=== PATIENT | male | born 1955 | race Hispanic/Latino ===

== ENCOUNTER 2019-12-01 09:07 | Observation (INO) | payer MEDICARE ==
[~2019-12-01] VITALS: Ht 167.6 cm; Wt 76.7 kg
[2019-12-01 09:42] LABS: BASOPHILS # (AUTO) 0.1 (0.0-0.1); BASOPHILS % 0.7 % (0.0-1.0); EOSINOPHILS # (AUTO) 0.2 (0.0-0.4); EOSINOPHILS % 2.7 % (0.0-6.0); HEMATOCRIT 46.5 % (38.2-49.6); HEMOGLOBIN 15.9 g/dL (14.0-18.0); LYMPHOCYTES # (AUTO) 2.5 (1.0-3.2); LYMPHOCYTES % 31.1 % (18.0-39.1); MEAN CORPUSCULAR HEMOGLOBIN 32.8 pg (28-32); MEAN CORPUSCULAR HGB CONC 34.2 g/dL (31-35); MEAN CORPUSCULAR VOLUME 95.9 fL (81-99); MONOCYTES # (AUTO) 0.9 (0.2-0.8); MONOCYTES % 10.6 % (4.4-11.3); NEUTROPHILS # (AUTO) 4.4 (2.1-6.9); NEUTROPHILS % 54.7 % (38.7-80.0); PLATELET COUNT 209 x10e3/uL (140-360); RED BLOOD COUNT 4.85 x10e6/uL (4.3-5.7); RED CELL DISTRIBUTION WIDTH 13.4 % (11.7-14.4)
[2019-12-01 09:58] LABS: CLARITY,URINE CLEAR (CLEAR); COLOR,URINE YELLOW (YELLOW); LEUKOCYTE ESTERASE ,URINE NEGATIVE (NEGATIVE)
[2019-12-01 09:59] LABS: BACTERIA,URINE RARE /HPF; BILIRUBIN,URINE NEGATIVE (NEGATIVE); EPITHELIAL CELLS,URINE FEW /LPF; KETONES,URINE NEGATIVE (NEGATIVE); NITRITE,URINE NEGATIVE (NEGATIVE); PROTEIN,URINE DIPSTICK NEGATIVE (NEGATIVE); RBC,URINE 0-5 /HPF (0-5); WBC,URINE (MAN) 0-5 /HPF (0-5)
[2019-12-01] MEDS ORDERED: ONDANSETRON HCL INJ 2MG/ML 2ML 2 MG/ML VIAL IV PRN (10:00)
[2019-12-01] MEDS ORDERED: NITROGLYCERIN 0.4 MG SUBL SL PRN (10:00)
[2019-12-01] MEDS ORDERED: MORPHINE SULFATE 2 MG/ML SYR 1ML IV PRN (10:00)
[2019-12-01 10:01] LABS: ALANINE AMINOTRANSFERASE 24 IU/L (0-55); ALBUMIN 4.5 g/dL (3.5-5.0); ALBUMIN/GLOBULIN RATIO 1.3 (0.8-2.0); ALKALINE PHOSPHATASE 104 IU/L (40-150); ANION GAP 13.1 mmol/L (8-16); BLOOD UREA NITROGEN 14 mg/dL (7-26); BUN/CREATININE RATIO 18 (6-25); CALCIUM 9.3 mg/dL (8.4-10.2); CARBON DIOXIDE 26 mmol/L (22-29); CHLORIDE 104 mmol/L (98-107); CREATINE KINASE 219 IU/L (30-200); CREATININE, SERUM 0.78 mg/dL (0.72-1.25); EST GLOMERULAR FILTRATION RATE > 60 ML/MIN (60-); GLUCOSE 89 mg/dL (74-118); MAGNESIUM 2.1 MG/DL (1.3-2.1); POTASSIUM 4.1 mmol/L (3.5-5.1); SODIUM 139 mmol/L (136-145)
[2019-12-01] MEDS ORDERED: LISINOPRIL10 MG PO (10:11)
[2019-12-01 10:15] LABS: INR 0.9; PARTIAL THROMBOPLASTIN TIME 29.2 seconds (23.8-35.5); PROTHROMBIN TIME 12.6 seconds (11.9-14.5)
--- NOTE | 2019-12-01 10:19 | Diagnostic Imaging Report ---
EXAMINATION: CHEST SINGLE (PORTABLE) INDICATION: CP COMPARISON: None FINDINGS: TUBES and LINES: None. LUNGS: Lungs are well inflated. Lungs are clear. There is no evidence of pneumonia or pulmonary edema. PLEURA: No pleural effusion or pneumothorax. HEART AND MEDIASTINUM: The cardiomediastinal silhouette is unremarkable. Indeterminate 4 mm metallic density overlies the right mediastinum. BONES AND SOFT TISSUES: No acute osseous abnormality. UPPER ABDOMEN: No free air under the diaphragm. IMPRESSION: No acute thoracic abnormality. Indeterminate 4 mm metallic density overlies the right mediastinum and may be post surgical or overlying the patient. Recommend clinical correlation. Signed by: Dr. Piper Guerrero MD on 12/01/2019 10:16 AM
[2019-12-01] MEDS: FAMOTIDINE 20 MG/2 ML VIAL IV SCH ×2 (10:29→22:05)
--- NOTE | 2019-12-01 10:45 | Diagnostic Imaging Report ---
CT BRAIN WO HISTORY: Right facial numbness COMPARISON: None. Technique: Noncontrast axial scans were obtained from skull base to the vertex. Coronal and sagittal reconstructions obtained from the axial data. One or more of the following dose reduction techniques were used: Automated exposure control, adjustment of the mA and/or kV according to patient size, and/or utilization of iterative reconstruction technique. DISCUSSION: Scalp/Skull: Unremarkable. Brain sulci: Mildly prominent. Ventricles: Compensatory dilatation. Extra-axial spaces: No masses or fluid collections. Carotid siphon and vertebral artery calcifications are present. Parenchyma: Mild bilateral deep white matter hypodensity is likely chronic microvascular ischemic change. Otherwise, no masses, hemorrhage, or large vascular territory acute infarct. Dural sinuses: No abnormal densities. Sellar/Suprasellar region: Intact. Skull base: Intact. Incidental findings: None. IMPRESSION: 1. No acute intracranial abnormalities. 2. Mild supratentorial chronic microvascular ischemic change. Mild generalized cerebral volume loss. Signed by: Dr. Matthew Madsen M.D. on 12/01/2019 10:42 AM
[2019-12-01] MEDS ORDERED: HYDRALAZINE HCL 20 MG/ML VIAL IV STA (11:58)
--- NOTE | 2019-12-01 11:58 | Emergency Department Note ---
History of Present Illnes History of Present Illness Chief Complaint: Chest Pain History of Present Illness This is a 64 year old male PATIENT IN FROM HOME WITH COMPLAINTS OF CHEST PAIN WITH ASSOC SOB INTERMITTENT SINCE LAST NIGHT RADIATES TO BOTH SHOULDERS AND RIGHT SIDED FACIAL NUMBNESS WITH ONSET APPROXIMATELY 30 MINUTES PRIOR TO ARRIVAL; RATES PAIN 6/10. PATIENT ALERT AND ORIENTED, RESP EVEN AND NONLABORED, APPEARS IN NO DISTRESS, AMBULATORY WITHOUT ASSISTANCE. Historian: Patient Arrival Mode: Car Radiology Therapist Required: No Onset (how long ago): day(s) (STARTED YESTERDAY) Location: SUBSTERNAL Quality: PRESSURE Radiation: Reports extremity (BOTH SHOULDERS) Severity: moderate Onset quality: sudden Timing of current episode: intermittent Progression: waxing and waning Chronicity: new Context: Denies recent illness Relieving factors: none Exacerbating factors: none Associated symptoms: Reports chest pain, Reports shortness of breath Past Medical/Family History Physician Review I have reviewed the patient's past medical and family history. Any updates have been documented here. Past Medical History Recent Fever: No Clinical Suspicion of Infectio: No New/Unexplained Change in Ment: No Past Medical History: Hypertension Past Surgical History: None Social History Smoking Cessation: Current some day smoker (NOT CIGARETTES BUT MARIJUANA) Counseling Performed: Yes Alcohol Use: Social Any Illegal Drug Use: Yes (DAILY MARIJUANA SMOKER) TB Exposure/Symptoms: No Physically hurt or threatened: No Family History Family history of heart diseas: No Other Any Pre-Existing Lines (PICC,: No Review of Systems Review of Systems Constitutional: Reports no symptoms EENTM: Reports no symptoms Cardiovascular: Reports as per HPI Respiratory: Reports as per HPI Gastrointestinal: Reports no symptoms Genitourinary: Reports no symptoms Musculoskeletal: Reports no symptoms Integumentary: Reports no symptoms Neurological: Reports no symptoms Psychological: Reports no symptoms Endocrine: Reports no symptoms Hematological/Lymphatic: Reports no symptoms Physical Exam Related Data Allergies: Coded Allergies: No Known Allergies (Unverified , 12/01/19) Triage Vital Signs Vital Signs Date Time Temp Pulse Resp B/P (MAP) Pulse Ox O2 Delivery O2 Flow Rate FiO2 12/01/19 09:09 97.2 61 18 171/81 100 Room Air Vital signs reviewed: Yes Physical Exam CONSTITUTIONAL Constitutional: Present well-developed, Present well-nourished HENT HENT: Present normocephalic, Present atraumatic, Present oropharynx clear/moist, Present nose normal HENT L/R: Present left ext ear normal, Present right ext ear normal EYES Eyes: Reports PERRL, Reports conjunctivae normal NECK Neck: Present ROM normal PULMONARY Pulmonary: Present effort normal, Present breath sounds normal CARDIOVASCULAR Cardiovascular: Present regular rhythm, Present heart sounds normal, Present capillary refill normal, Present normal rate GASTROINTESTINAL Abdominal: Present soft, Present nontender, Present bowel sounds normal GENITOURINARY Genitourinary: Present exam deferred SKIN Skin: Present warm, Present dry MUSCULOSKELETAL Musculoskeletal: Present ROM normal NEUROLOGICAL Neurological: Present alert, Present oriented x 3, Present no gross motor or sensory deficits PSYCHOLOGICAL Psychological: Present mood/affect normal, Present judgement normal Results Laboratory Result Diagram: 12/01/1925 12/01/19 0925 Laboratory Laboratory Tests Test 12/01/19 10:02 12/01/19 09:25 White Blood Count 8.04 x10e3/uL (4.8-10.8) Red Blood Count 4.85 x10e6/uL (4.3-5.7) Hemoglobin 15.9 g/dL (14.0-18.0) Hematocrit 46.5 % (38.2-49.6) Mean Corpuscular Volume 95.9 fL (81-99) Mean Corpuscular Hemoglobin 32.8 pg (28-32) Mean Corpuscular Hemoglobin Concent 34.2 g/dL (31-35) Red Cell Distribution Width 13.4 % (11.7-14.4) Platelet Count 209 x10e3/uL (140-360) Neutrophils (%) (Auto) 54.7 % (38.7-80.0) Lymphocytes (%) (Auto) 31.1 % (18.0-39.1) Monocytes (%) (Auto) 10.6 % (4.4-11.3) Eosinophils (%) (Auto) 2.7 % (0.0-6.0) Basophils (%) (Auto) 0.7 % (0.0-1.0) Neutrophils # (Auto) 4.4 (2.1-6.9) Lymphocytes # (Auto) 2.5 (1.0-3.2) Monocytes # (Auto) 0.9 (0.2-0.8) Eosinophils # (Auto) 0.2 (0.0-0.4) Basophils # (Auto) 0.1 (0.0-0.1) Absolute Immature Granulocyte (auto 0.02 x10e3/uL (0-0.1) Prothrombin Time 12.6 seconds (11.9-14.5) Prothromb Time International Ratio 0.90 Activated Partial Thromboplast Time 29.2 seconds (23.8-35.5) Urine Color Yellow (YELLOW) Urine Clarity Clear (CLEAR) Urine pH 7.5 (5 - 7) Urine Specific [place] 1.020 (1.010-1.025) Urine Protein Negative (NEGATIVE) Urine Glucose (UA) Negative (NEGATIVE) Urine Ketones Negative (NEGATIVE) Urine Blood Negative (NEGATIVE) Urine Nitrite Negative (NEGATIVE) Urine Bilirubin Negative (NEGATIVE) Urine Urobilinogen 4.0 mg/dL (0.2 - 1) Urine Leukocyte Esterase Negative (NEGATIVE) Urine RBC 0-5 /HPF (0-5) Urine WBC 0-5 /HPF (0-5) Urine Epithelial Cells Few /LPF (NONE) Urine Bacteria Rare /HPF (NONE) Sodium Level 139 mmol/L (136-145) Potassium Level 4.1 mmol/L (3.5-5.1) Chloride Level 104 mmol/L (98-107) Carbon Dioxide Level 26 mmol/L (22-29) Anion Gap 13.1 mmol/L (8-16) Blood Urea Nitrogen 14 mg/dL (7-26) Creatinine 0.78 mg/dL (0.72-1.25) Estimat Glomerular Filtration Rate > 60 ML/MIN (60-) BUN/Creatinine Ratio 18 (6-25) Glucose Level 89 mg/dL (74-118) Calcium Level 9.3 mg/dL (8.4-10.2) Magnesium Level 2.1 MG/DL (1.3-2.1) Total Bilirubin 0.5 mg/dL (0.2-1.2) Aspartate Amino Transf (AST/SGOT) 26 IU/L (5-34) Alanine Aminotransferase (ALT/SGPT) 24 IU/L (0-55) Alkaline Phosphatase 104 IU/L (40-150) Creatine Kinase 219 IU/L (30-200) Creatine Kinase MB 2.70 ng/mL (0-5.0) Troponin I 0.016 ng/mL (0-0.300) B-Type Natriuretic Peptide 37.9 pg/mL (0-100) Total Protein 8.0 g/dL (6.5-8.1) Albumin 4.5 g/dL (3.5-5.0) Globulin 3.5 g/dL (2.3-3.5) Albumin/Globulin Ratio 1.3 (0.8-2.0) Lab results reviewed: Yes Imaging Imaging results reviewed: Yes Procedures 12 Lead ECG Interpretation ECG Interpretation : ECG: ECG 1 Radiology Therapist: Interpreted by ED physician Date: Dec 01, 2019 Time: 09:10 Rhythm: sinus bradycardia Rate: bradycardia (57) QRS axis: left ST segments normal: Yes T waves normal: Yes Clinical Impression: normal ECG Assessment & Plan Medical Decision Making [facility] CP WITH ASSOC SOB & RAD TO SHOULDERS - CBC, CHEM, ECG, CARDIACS, CXR. HE ALSO C/O NUMBNESS TO FACE SO IN CASE HE NEEDS ANTICOAGULATION, WILL GET CT BRAIN. - R/O STEMI/NSTEMI, ELECTROLYTE ABNL, PNEUMONIA, COVID, CEREBRAL BLEED/CVA Reassessment Reassessment ADMIT DR WILKS Assessment & Plan Final Impression: (1) Chest pain Depart Disposition: ADMITTED Last Vital Signs Date Time Temp Pulse Resp B/P (MAP) Pulse Ox O2 Delivery O2 Flow Rate FiO2 12/01/19 10:37 97.2 57 16 170/79 97 Room Air Home Meds Reported Medications Lisinopril (LISINOPRIL) 10 Mg Tablet, 30 MG PO DAILY, #30 TAB 12/01/19 LEA ARVIZU MD Dec 01, 2019 11:58
[2019-12-01] MEDS ORDERED: HYDRALAZINE HCL 20 MG/ML VIAL IV PRN (17:30)
[2019-12-01] MEDS ORDERED: POLYETHYLENE GLYCOL 3350 17 GM PACK PO PRN (18:45)
[2019-12-01] MEDS ORDERED: TEMAZEPAM 7.5 MG CAP PO PRN (18:45)
[2019-12-01] MEDS ORDERED: ACETAMINOPHEN 325 MG TAB PO PRN (18:45)
[2019-12-01] MEDS ORDERED: IOPAMIDOL 370 MG/ML 200 ML INFUS..BTL INJ ONE (18:52)
[2019-12-01] MEDS ORDERED: SODIUM CHLORIDE 0.9% 50ML 50 ML ONE (18:52)
--- NOTE | 2019-12-01 19:45 | Diagnostic Imaging Report ---
EXAM: CT Chest WITH contrast (PE Protocol) INDICATION: ^PE Protocol, reproducible Lt sided chest pain ^[id number] ^[id number] ^Y COMPARISON: Same day chest x-ray TECHNIQUE: Chest was scanned utilizing a multidetector helical scanner from the lung apex through the level of the diaphragm after administration of IV contrast. Thin section reconstructions were obtained with special concentration on the pulmonary arteries. Coronal and sagittal reformations were obtained. Dose modulation, iterative reconstruction, and/or weight based adjustment of the mA/kV was utilized to reduce the radiation dose to as low as reasonably achievable. Pulmonary embolism protocol was performed. IV CONTRAST: 100 mL of Omnipaque 370 COMPLICATIONS: None RADIATION DOSE: Total DLP: 529.49 mGy*cm Estimated effective dose: (DLP x 0.014 x size factor) mSv CTDIvol has been reviewed. It is below the limits set by the Radiation Protocol Committee (RPC). FINDINGS: LINES/ TUBES: None. LUNGS AND AIRWAYS: No filling defect is identified within the pulmonary arteries to the segmental level. Left upper lobe 5 mm nodule. Right upper lobe area of nodularity versus scarring, measuring up to 5 mm. No focal infiltrate. Airways are normal. PLEURA: The pleural spaces are clear. HEART AND MEDIASTINUM: The thyroid gland is normal. No mediastinal, hilar or axillary lymphadenopathy. The heart is normal in size.. There is no pericardial effusion. . Main pulmonary artery measures 2.8 cm in diameter. UPPER ABDOMEN: Unremarkable BONES: Degenerative changes of spine. SOFT TISSUES: Unremarkable. IMPRESSION: No pulmonary emboli. Lung nodules measuring up to 5 mm. Without risk factors, no follow-up is necessary. With risk factors, follow-up with low-dose chest CT in one year is recommended. Signed by: Dr. Rhett Stephens MD on 12/01/2019 7:42 PM
[2019-12-01 21:30] VITALS: BP 148/87
--- NOTE | 2019-12-01 22:00 | NUR ---
PATIENT MANAGER WOMEN FROM ER. PATIENT IS AAOX4, RESP EVEN AND UNLABORED. NO ACUTE DISTRESS NOTED AT THIS TIME. PATIENT DENIES OF ANY PAIN OR DISCOMFORT. TELE IN PLACE. ORIENTED PATIENT TO ROOM. EDUCATED PT ABOUT FALL PRECAUTIONS. PT VERBALIZED UNDERSTANDING. BED IS LOW AND LOCKED. SIDE RAILS X2. CALL LIGHT WITH IN EASY REACH. BED ALARM IS ON. ALL SAFETY MEASURES IN PLACE. PT DENIES NEEDS AT THIS TIME.
[2019-12-01 22:20] VITALS: BP 148/87
[2019-12-01 22:24] VITALS: BP 148/87
[2019-12-01 22:36] LABS: CREATINE KINASE MB 1.5 ng/mL (0-5.0)
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
[2019-12-02 00:31] VITALS: BP 141/72
[2019-12-02 04:00] VITALS: BP 163/87
[2019-12-02 05:29] LABS: BASOPHILS # (AUTO) 0.1 (0.0-0.1); BASOPHILS % 0.7 % (0.0-1.0); EOSINOPHILS # (AUTO) 0.3 (0.0-0.4); EOSINOPHILS % 4.2 % (0.0-6.0); HEMATOCRIT 45.5 % (38.2-49.6); HEMOGLOBIN 15.2 g/dL (14.0-18.0); LYMPHOCYTES # (AUTO) 2.7 (1.0-3.2); LYMPHOCYTES % 36.8 % (18.0-39.1); MEAN CORPUSCULAR HEMOGLOBIN 32.7 pg (28-32); MEAN CORPUSCULAR HGB CONC 33.4 g/dL (31-35); MEAN CORPUSCULAR VOLUME 97.8 fL (81-99); MONOCYTES # (AUTO) 0.7 (0.2-0.8); MONOCYTES % 9.9 % (4.4-11.3); NEUTROPHILS # (AUTO) 3.6 (2.1-6.9); NEUTROPHILS % 48.3 % (38.7-80.0); PLATELET COUNT 207 x10e3/uL (140-360); RED BLOOD COUNT 4.65 x10e6/uL (4.3-5.7); RED CELL DISTRIBUTION WIDTH 13.5 % (11.7-14.4)
[2019-12-02 05:57] LABS: CREATINE KINASE MB 1.4 ng/mL (0-5.0)
[2019-12-02 06:16] LABS: MAGNESIUM 2.1 MG/DL (1.3-2.1); PHOSPHORUS 2.8 MG/DL (2.3-4.7)
[2019-12-02 06:37] LABS: THYROID STIMULATING HORMONE 3.49 uIU/mL (0.350-4.940)
[2019-12-02 07:34] VITALS: BP 158/80
[2019-12-02 07:35] LABS: ALANINE AMINOTRANSFERASE 22 IU/L (0-55); ALBUMIN 4.1 g/dL (3.5-5.0); ALBUMIN/GLOBULIN RATIO 1.3 (0.8-2.0); ALKALINE PHOSPHATASE 69 IU/L (40-150); ANION GAP 14.5 mmol/L (8-16); BLOOD UREA NITROGEN 13 mg/dL (7-26); BUN/CREATININE RATIO 16 (6-25); CALCIUM 9.1 mg/dL (8.4-10.2); CARBON DIOXIDE 23 mmol/L (22-29); CHLORIDE 106 mmol/L (98-107); CHOL/HDL RATIO 4.7 (3.9-4.7); CHOLESTEROL 198 MD/DL (0-199); CREATININE, SERUM 0.81 mg/dL (0.72-1.25); EST GLOMERULAR FILTRATION RATE > 60 ML/MIN (60-); GLUCOSE 105 mg/dL (74-118); HDL CHOLESTEROL 42 MG/DL (40-60); LDL CHOLESTEROL 130 MG/DL (60-130); POTASSIUM 4.5 mmol/L (3.5-5.1); SODIUM 139 mmol/L (136-145); TRIGLYCERIDES 131 MG/DL (0-149)
[2019-12-02] MEDS ORDERED: LISINOPRIL 10 MG TAB PO SCH (09:00)
[2019-12-02] MEDS ORDERED: DOCUSATE SODIUM 100 MG CAP PO SCH (09:00)
[2019-12-02] MEDS ORDERED: ASPIRIN 81 MG ENTERIC COATED PO SCH (09:00)
[2019-12-02] MEDS: FAMOTIDINE 20 MG/2 ML VIAL IV SCH (09:08)
[2019-12-02 11:31] VITALS: BP 170/80
[2019-12-02] MEDS ORDERED: ULTRAM50 MG PO (13:53)
[2019-12-02] MEDS ORDERED: ASPIRIN EC81 MG PO (13:53)
--- NOTE | 2019-12-02 15:02 | NUR ---
Discharge instructions and prescriptions given to the patient, he verbalized understanding. IV to the left ac was removed.
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
== END 2019-12-02 15:28 | disposition home or self-care (01) ==
LOC: ER 09:30 → ERHOLD 09:46 → MED/SURG2 21:32
PROVIDERS: ADMIT Internal Medicine; ATTEND Internal Medicine
DX: R07.89 Other chest pain (principal); R00.1 Bradycardia, unspecified; R20.0 Anesthesia of skin; I10 Essential (primary) hypertension; Z11.59 Encounter for screening for other viral diseases
CPT/HCPCS: 36415 ×2; 70450; 71045; 71260; 80053 ×2; 80061; 81001; 82550 ×2; 82553 ×2; 83036; 83735 ×2; 83880; 84100; 84443; 84484 ×2; 85025 ×2; 85610; 85730; 93005; 99284; G0378 ×2; J0360 ×2; Q9967; U0002

== ENCOUNTER 2019-12-13 08:58 | Observation (INO) | payer MEDICARE, OTHER ==
[2019-12-11 16:02] LABS: BASOPHILS # (AUTO) 0.1 (0.0-0.1); BASOPHILS % 0.8 % (0.0-1.0); EOSINOPHILS # (AUTO) 0.3 (0.0-0.4); EOSINOPHILS % 3.5 % (0.0-6.0); HEMATOCRIT 42.7 % (38.2-49.6); HEMOGLOBIN 14.6 g/dL (14.0-18.0); LYMPHOCYTES # (AUTO) 2.9 (1.0-3.2); LYMPHOCYTES % 31.9 % (18.0-39.1); MEAN CORPUSCULAR HEMOGLOBIN 33.6 pg (28-32); MEAN CORPUSCULAR HGB CONC 34.2 g/dL (31-35); MEAN CORPUSCULAR VOLUME 98.2 fL (81-99); MONOCYTES # (AUTO) 0.9 (0.2-0.8); MONOCYTES % 10.1 % (4.4-11.3); NEUTROPHILS # (AUTO) 4.9 (2.1-6.9); NEUTROPHILS % 53.6 % (38.7-80.0); PLATELET COUNT 177 x10e3/uL (140-360); RED BLOOD COUNT 4.35 x10e6/uL (4.3-5.7); RED CELL DISTRIBUTION WIDTH 13.4 % (11.7-14.4)
[2019-12-11 16:16] LABS: INR 0.99; PARTIAL THROMBOPLASTIN TIME 29.7 seconds (23.8-35.5); PROTHROMBIN TIME 13.6 seconds (11.9-14.5)
[2019-12-11 16:23] LABS: ALANINE AMINOTRANSFERASE 25 IU/L (0-55); ALBUMIN 4.1 g/dL (3.5-5.0); ALBUMIN/GLOBULIN RATIO 1.1 (0.8-2.0); ALKALINE PHOSPHATASE 91 IU/L (40-150); ANION GAP 16.2 mmol/L (8-16); BLOOD UREA NITROGEN 12 mg/dL (7-26); BUN/CREATININE RATIO 14 (6-25); CALCIUM 9.4 mg/dL (8.4-10.2); CARBON DIOXIDE 27 mmol/L (22-29); CHLORIDE 104 mmol/L (98-107); CREATININE, SERUM 0.87 mg/dL (0.72-1.25); EST GLOMERULAR FILTRATION RATE > 60 ML/MIN (60-); GLUCOSE 91 mg/dL (74-118); POTASSIUM 4.2 mmol/L (3.5-5.1); SODIUM 143 mmol/L (136-145)
[~2019-12-13] VITALS: Ht 167.6 cm; Wt 79.4 kg
[2019-12-13] VITALS (18 sets, daily range): BP systolic 114–185; BP diastolic 57–86
[~2019-12-13 08:58] MED LIST: ASPIRIN EC81 MG PO; LISINOPRIL10 MG PO; ULTRAM50 MG PO
[2019-12-13] MEDS ORDERED: NITROGLYCERIN0.4 MG SL (09:49)
[2019-12-13] MEDS ORDERED: AMLODIPINE BESYL5 MG PO (09:49)
[2019-12-13] MEDS ORDERED: ATORVASTATIN CA20 MG PO (09:49)
[2019-12-13] MEDS ORDERED: METOPROLOL SUCC25 MG PO (09:49)
[2019-12-13] MEDS ORDERED: ASPIRIN 325 MG TAB ONE ×2 (10:03→11:32)
[2019-12-13] MEDS ORDERED: MIDAZOLAM HCL 2 MG/2 ML VIAL ONE (10:59)
[2019-12-13] MEDS ORDERED: SODIUM CHLORIDE 0.9% 1000ML 1,000 ML ONE (11:00)
[2019-12-13] MEDS ORDERED: LIDOCAINE HCL 2% LOCAL 20 ML VIAL ONE (11:00)
[2019-12-13] MEDS ORDERED: FENTANYL CITRATE/PF 100MCG/2 ML INJ ONE (11:00)
[2019-12-13] MEDS ORDERED: HEPARIN SOD/SOD CHLORIDE 2,000 ML ONE (11:00)
[2019-12-13] MEDS ORDERED: IOPAMIDOL 370 MG/ML 200 ML INFUS..BTL INJ ONE (11:00)
[2019-12-13] MEDS ORDERED: CLOPIDOGREL BISULFATE 75 MG TAB ONE (11:31)
[2019-12-13] MEDS ORDERED: HYDRALAZINE HCL 20 MG/ML VIAL ONE (12:18)
[2019-12-13] MEDS ORDERED: TRAMADOL HCL 50 MG TAB PO PRN (19:00)
[2019-12-13] MEDS ORDERED: NITROGLYCERIN 0.4 MG SUBL SL PRN (19:00)
[2019-12-13] MEDS ORDERED: ACETAMINOPHEN 325 MG TAB PO PRN (19:00)
[2019-12-13] MEDS ORDERED: ATORVASTATIN 40 MG TAB PO SCH (21:00)
[2019-12-14] VITALS: BP 138/69
[2019-12-14 04:00] VITALS: BP 143/85
[2019-12-14 07:34] VITALS: BP 131/67
[2019-12-14 09:00] VITALS: BP 131/67
[2019-12-14] MEDS ORDERED: LISINOPRIL 20 MG TAB PO SCH (09:00)
[2019-12-14] MEDS ORDERED: METOPROLOL SUCCINATE 25 MG TAB XL PO SCH (09:00)
[2019-12-14] MEDS ORDERED: ASPIRIN 81 MG ENTERIC COATED PO SCH (09:00)
[2019-12-14] MEDS ORDERED: AMLODIPINE BESYLATE 5 MG TAB PO SCH (09:00)
[2019-12-14 11:16] VITALS: BP 163/84
[2019-12-14] MEDS ORDERED: PLAVIX75 MG PO (12:22)
== END 2019-12-14 12:38 | disposition home or self-care (01) ==
LOC: CATH LAB 08:58 → PACU V 11:54 → MED/SURG 14:46
PROVIDERS: ADMIT Internal Medicine Cardiovascular Disease; ATTEND Internal Medicine Cardiovascular Disease
DX: I25.118 Atherosclerotic heart disease of native coronary artery with other forms of angina pectoris (principal); R06.02 Shortness of breath; I10 Essential (primary) hypertension; E78.5 Hyperlipidemia, unspecified; Z83.3 Family history of diabetes mellitus; Z82.49 Family history of ischemic heart disease and other diseases of the circulatory system; Z11.59 Encounter for screening for other viral diseases; Z01.812 Encounter for preprocedural laboratory examination
CPT/HCPCS: 93458; C9600; 36415; 80053; 85025; 85610; 85730; 92928; C1725; C1769; C1876; C1887; G0378; J0360; J2001; J2250; J3010; J7030; Q9967; U0002

== ENCOUNTER 2022-04-19 10:53 | Observation (INO) | payer MEDICARE ==
[~2022-04-19] VITALS: Ht 167.6 cm; Wt 79.4 kg
[~2022-04-19 10:53] MED LIST changes: +AMLODIPINE BESYL5 MG PO; +ATORVASTATIN CA20 MG PO; +METOPROLOL SUCC25 MG PO; +NITROGLYCERIN0.4 MG SL; +PLAVIX75 MG PO
[2022-04-19] MEDS ORDERED: MECLIZINE HCL 12.5 MG TAB PO ONE (12:00)
[2022-04-19 12:09] LABS: BASOPHILS # (AUTO) 0.1 (0.0-0.1); BASOPHILS % 0.8 % (0.0-1.0); EOSINOPHILS # (AUTO) 0.4 (0.0-0.4); EOSINOPHILS % 5.5 % (0.0-6.0); HEMATOCRIT 45.6 % (38.2-49.6); HEMOGLOBIN 14.7 g/dL (14.0-18.0); LYMPHOCYTES # (AUTO) 2.3 (1.0-3.2); LYMPHOCYTES % 34.9 % (18.0-39.1); MEAN CORPUSCULAR HEMOGLOBIN 32.2 pg (28-32); MEAN CORPUSCULAR HGB CONC 32.2 g/dL (31-35); MONOCYTES # (AUTO) 0.6 (0.2-0.8); MONOCYTES % 9.6 % (4.4-11.3); NEUTROPHILS # (AUTO) 3.2 (2.1-6.9); NEUTROPHILS % 48.9 % (38.7-80.0); PLATELET COUNT 189 x10e3/uL (140-360); RED BLOOD COUNT 4.56 x10e6/uL (4.3-5.7); RED CELL DISTRIBUTION WIDTH 12.8 % (11.7-14.4)
[2022-04-19 12:20] LABS: ALBUMIN 3.6 g/dL (3.5-5.0); ALBUMIN/GLOBULIN RATIO 0.9 (0.8-2.0); ANION GAP 9.8 mmol/L (8-16); CALCIUM 8.8 mg/dL (8.4-10.2); CREATININE, SERUM 0.69 mg/dL (0.72-1.25); POTASSIUM 3.8 mmol/L (3.5-5.1)
[2022-04-19 12:26] LABS: CREATINE KINASE MB 9.1 ng/mL (0-5.0)
[2022-04-19] MEDS ORDERED: SODIUM CHLORIDE FLUSH 10 ML SYR INJ PRN (13:15)
[2022-04-19] MEDS ORDERED: ONDANSETRON HCL INJ 2MG/ML 2ML 2 MG/ML VIAL IV PRN (13:15)
[2022-04-19] MEDS ORDERED: MECLIZINE HCL 12.5 MG TAB ONE (13:28)
[2022-04-19] MEDS ORDERED: HYDRALAZINE HCL 20 MG/ML VIAL ONE (13:29)
[2022-04-19] MEDS ORDERED: SODIUM CHLORIDE 0.9% 100 ML ONE (13:41)
[2022-04-19] MEDS ORDERED: IOPAMIDOL 370 MG/ML 100 ML INFUS..BTL INJ ONE (13:42)
[2022-04-19] MEDS: HYDRALAZINE HCL 20 MG/ML VIAL IV PRN (15:54)
[2022-04-19 20:00] VITALS: BP 160/78
[2022-04-19 21:36] VITALS: BP 160/78
[2022-04-20] VITALS (8 sets, daily range): BP systolic 131–175; BP diastolic 69–91
[2022-04-20 06:09] LABS: BASOPHILS % 0.6 % (0.0-1.0); EOSINOPHILS # (AUTO) 0.3 (0.0-0.4); EOSINOPHILS % 4.4 % (0.0-6.0); HEMATOCRIT 41.9 % (38.2-49.6); LYMPHOCYTES # (AUTO) 1.7 (1.0-3.2); LYMPHOCYTES % 27.4 % (18.0-39.1); MEAN CORPUSCULAR HEMOGLOBIN 33.9 pg (28-32); MEAN CORPUSCULAR HGB CONC 35.8 g/dL (31-35); MEAN CORPUSCULAR VOLUME 94.8 fL (81-99); MONOCYTES # (AUTO) 0.6 (0.2-0.8); MONOCYTES % 9.7 % (4.4-11.3); NEUTROPHILS # (AUTO) 3.6 (2.1-6.9); NEUTROPHILS % 57.6 % (38.7-80.0); PLATELET COUNT 179 x10e3/uL (140-360); RED BLOOD COUNT 4.42 x10e6/uL (4.3-5.7); RED CELL DISTRIBUTION WIDTH 13.4 % (11.7-14.4)
[2022-04-20 06:24] LABS: ANION GAP 11.8 mmol/L (8-16); CALCIUM 8.7 mg/dL (8.4-10.2); CREATININE, SERUM 0.75 mg/dL (0.72-1.25); POTASSIUM 3.8 mmol/L (3.5-5.1)
[2022-04-20] MEDS: HYDRALAZINE HCL 20 MG/ML VIAL IV PRN ×2 (12:47→16:27)
[2022-04-20 15:55] LABS: CHOL/HDL RATIO 4.2 (3.9-4.7)
[2022-04-20] MEDS: ASPIRIN 81 MG CHEW TAB PO SCH (19:21)
[2022-04-20] MEDS: METOPROLOL SUCCINATE 25 MG TAB XL PO SCH (19:21)
[2022-04-20] MEDS ORDERED: ATORVASTATIN 40 MG TAB PO SCH (21:00)
[2022-04-21 01:49] VITALS: BP 142/73
[2022-04-21 05:42] VITALS: BP 142/73
[2022-04-21 05:43] VITALS: BP 142/73
[2022-04-21 05:58] VITALS: BP 153/76
[2022-04-21] MEDS: ASPIRIN 81 MG CHEW TAB PO SCH (08:26)
[2022-04-21] MEDS: METOPROLOL SUCCINATE 25 MG TAB XL PO SCH (08:27)
[2022-04-21 08:39] VITALS: BP 137/62
[2022-04-21 08:47] VITALS: BP 137/62
== END 2022-04-21 10:25 | disposition home or self-care (01) ==
LOC: ER 10:56 → INTOOBSV 13:15 → ERHOLD 13:15 → MED/SURG2 18:36
PROVIDERS: ADMIT Internal Medicine; ATTEND Internal Medicine
DX: R42 Dizziness and giddiness (principal); R26.0 Ataxic gait; I25.10 Atherosclerotic heart disease of native coronary artery without angina pectoris; I10 Essential (primary) hypertension; E78.5 Hyperlipidemia, unspecified; Z91.14 Patient's other noncompliance with medication regimen; Z20.822 Contact with and (suspected) exposure to COVID-19; Z79.02 Long term (current) use of antithrombotics/antiplatelets; Z79.82 Long term (current) use of aspirin; Z79.899 Other long term (current) drug therapy; Z95.5 Presence of coronary angioplasty implant and graft; Z86.73 Personal history of transient ischemic attack (TIA), and cerebral infarction without residual deficits
CPT/HCPCS: 0223U; 36415 ×2; 70450; 70496; 70498; 71045; 80048; 80053; 80061; 82550; 82553; 84484; 85025 ×2; 93005; 93306; 93880; 99284; G0378 ×3; J0360 ×2; J7050; J8597; Q9967

== ENCOUNTER 2023-10-25 13:10 | Emergency (ER) | payer MEDICARE ==
[~2023-10-25] VITALS: Ht 167.6 cm; Wt 79.4 kg
[2023-10-25 15:18] LABS: BILIRUBIN,URINE NEGATIVE (NEGATIVE); CLARITY,URINE CLEAR (CLEAR); COLOR,URINE YELLOW (YELLOW); GLUCOSE, URINE NEGATIVE (NEGATIVE); KETONES,URINE NEGATIVE (NEGATIVE); LEUKOCYTE ESTERASE ,URINE NEGATIVE (NEGATIVE); NITRITE,URINE NEGATIVE (NEGATIVE); PH,URINE 6 (5 - 7); PROTEIN,URINE DIPSTICK NEGATIVE (NEGATIVE); URINE UROBILINOGEN 1 mg/dL (0.2 - 1)
[2023-10-25 15:40] LABS: WBC,URINE (MAN) 0-5 /HPF (0-5)
[2023-10-25 15:41] LABS: BACTERIA,URINE RARE /HPF
[2023-10-25 15:42] LABS: MUCUS,URINE RARE (RARE)
[2023-10-25 17:11] VITALS: PULSE 69; RESP 16; TEMP 99.5; O2SAT 98
[2023-10-25] MEDS: KETOROLAC TROMETHAMINE 30 MG/ML VIAL IV ONE (17:22)
[2023-10-25 17:30] LABS: BASOPHILS # (AUTO) 0.1 (0.0-0.1); BASOPHILS % 0.4 % (0.0-1.0); EOSINOPHILS # (AUTO) 0.2 (0.0-0.4); EOSINOPHILS % 1.7 % (0.0-6.0); HEMATOCRIT 42.4 % (38.2-49.6); HEMOGLOBIN 14.1 g/dL (14.0-18.0); LYMPHOCYTES # (AUTO) 1.9 (1.0-3.2); LYMPHOCYTES % 14.4 % (18.0-39.1); MEAN CORPUSCULAR HEMOGLOBIN 33.3 pg (28-32); MEAN CORPUSCULAR HGB CONC 33.3 g/dL (31-35); MONOCYTES # (AUTO) 0.9 (0.2-0.8); MONOCYTES % 6.7 % (4.4-11.3); NEUTROPHILS # (AUTO) 9.8 (2.1-6.9); NEUTROPHILS % 75.3 % (38.7-80.0); PLATELET COUNT 164 x10e3/uL (140-360); RED BLOOD COUNT 4.24 x10e6/uL (4.3-5.7); RED CELL DISTRIBUTION WIDTH 13.8 % (11.7-14.4); WHITE BLOOD COUNT 13.02 x10e3/uL (4.8-10.8)
[2023-10-25 17:46] LABS: ANION GAP 14.4 mmol/L (8-16); CREATININE, SERUM 0.9 mg/dL (0.72-1.25); POTASSIUM 4.4 mmol/L (3.5-5.1)
== END 2023-10-25 21:30 | disposition home or self-care (01) ==
LOC: ER 17:37
DX: R10.30 Lower abdominal pain, unspecified (principal); N20.0 Calculus of kidney; I10 Essential (primary) hypertension; E78.5 Hyperlipidemia, unspecified; I25.10 Atherosclerotic heart disease of native coronary artery without angina pectoris
CPT/HCPCS: 36415; 74176; 80048; 81001; 85025; 99283; J1885